=== PATIENT | female | born 1985 | race Caucasian/White ===

== ENCOUNTER 2023-11-09 22:22 | Emergency (ER) | payer OTHER ==
[~2023-11-09] VITALS: Ht 152.4 cm; Wt 56.8 kg
[2023-11-09 22:28] VITALS: TEMP 97.8
[2023-11-09 23:04] LABS: COLLECTION METHOD CLEAN CATCH
[2023-11-09 23:37] LABS: PH 5.5 (5.0-8.5); URINE APPEARANCE TURBID (CLEAR/HAZY); URINE BLOOD 3+ (NEGATIVE); URINE COLOR ORANGE (YELLOW); URINE GLUCOSE NEGATIVE (NEGATIVE); URINE KETONE NEGATIVE (NEGATIVE); URINE NITRATE NEGATIVE (NEGATIVE); URINE PROTEIN(semi-quant) 2+ (NEGATIVE)
[2023-11-09 23:38] LABS: URINE BACTERIA MANY /hpf (NONE SEEN); URINE RBC >50 /hpf (0-2); URINE WBC >50 /hpf (0-2)
[2023-11-09] MEDS ORDERED: CEFTIN 250250 MG/TAB PO (23:44)
[2023-11-09] MEDS ORDERED: Home Ondansetron ODT 4 MG #2 ODT/PACK PO ONE (23:45)
[2023-11-09] MEDS ORDERED: Cefuroxime 250 MG TAB PO ONE (23:45)
[2023-11-10 00:01] VITALS: BP 104/64; PULSE 76
== END 2023-11-10 00:01 | disposition home or self-care (01) ==
LOC: COL.ER 22:22
PROVIDERS: Nurse Practitioner
DX: N39.0 Urinary tract infection, site not specified (principal)